=== PATIENT | male | born 1980 | race Hispanic/Latino ===

== ENCOUNTER 2020-06-29 15:31 | Inpatient (IN) | payer SELFPAY ==
[~2020-06-29] VITALS: Ht 172.7 cm; Wt 115.8 kg
[2020-06-29 16:26] LABS: BASOPHILS % (AUTO) 0.5 % (0.0-5.0); EOSINOPHILS % (AUTO) 2.9 % (0.0-8.0); HEMATOCRIT 24.7 % (42-54); LYMPHOCYTES % (AUTO) 23.5 % (21.0-51.0); MEAN CORPUSCULAR HEMOGLOBIN 29.4 pg (27.0-33.0); MEAN CORPUSCULAR HGB CONC 31.6 g/dL (32.0-36.0); MEAN CORPUSCULAR VOLUME 93.2 fL (79-99); MONOCYTES % (AUTO) 7.6 % (3.0-13.0); NEUTROPHILS % (AUTO) 65.3 % (40.0-77.0); PLATELET COUNT (AUTO) 98 K/uL (130-400); RED BLOOD CELL COUNT(AUTO) 2.65 MIL/uL (4.50-6.20); RED CELL DISTRIBUTION WIDTH 15.3 % (11.0-15.5); WHITE BLOOD COUNT (AUTO) 5.5 K/uL (4.8-10.8)
[2020-06-29 16:43] LABS: INR 1.42 (0.85-1.15); PARTIAL THROMBOPLASTIN TIME 28.9 SEC (26.3-35.5); PROTHROMBIN TIME 15.1 SEC (9.6-11.6)
[2020-06-29 16:51] LABS: CREATININE 0.7 mg/dL (0.5-1.5); POTASSIUM 3.6 mmol/L (3.5-5.1)
[2020-06-29 16:55] LABS: ALBUMIN 2.2 g/dL (3.5-5.0); BILIRUBIN,TOTAL 2.6 mg/dL (0.2-1.0)
[2020-06-29 17:54] LABS: APPEARANCE,URINE Clear (CLEAR); BILIRUBIN,URINE Negative (NEGATIVE); COLOR,URINE Dark Yellow (YELLOW); GLUCOSE, URINE (UA) Negative (NEGATIVE); KETONES,URINE Negative (NEGATIVE); LEUKOCYTE ESTERASE ,URINE Trace (NEGATIVE); NITRATE,URINE Negative (NEGATIVE); OCCULT BLOOD,URINE Negative (NEGATIVE); PROTEIN,URINE Negative (NEGATIVE)
[2020-06-29 18:24] LABS: RBC,URINE None Seen /HPF (0-1)
[2020-06-29 18:25] LABS: BACTERIA,URINE Rare /HPF (None Seen); SQUAMOUS EPITHELIAL CELL,UR 0-2 /HPF (0-2)
[2020-06-29] MEDS ORDERED: MAG HYDROX/AL HYDROX/SIMETH ES 30 ML SUSP UDCUP PO PRN (20:45)
[2020-06-29] MEDS ORDERED: NITROGLYCERIN 0.4 MG SL TAB SL PRN (20:45)
[2020-06-29] MEDS ORDERED: ACETAMINOPHEN 325 MG TAB PO PRN ×2 (20:45)
[2020-06-29] MEDS ORDERED: MAG HYDROX/AL HYDROX/SIMETH 30 ML, LIDOCAINE HCL 2% VISCOUS 30 ML, DIPHENHYDRAMINE HCL ... PO PRN ×3 (20:45)
[2020-06-29] MEDS ORDERED: MORPHINE SULFATE 2 MG/ML 1ML SYG IV PRN (20:45)
[2020-06-29] MEDS ORDERED: LACTULOSE 20 GM/30 ML UDCUP PO PRN (20:45)
[2020-06-29] MEDS ORDERED: ZOLPIDEM TARTRATE 5 MG TAB PO PRN (20:45)
[2020-06-29] MEDS ORDERED: GUAIFENESIN-DM 200/20 MG 10 ML PO PRN (20:45)
[2020-06-29] MEDS ORDERED: ONDANSETRON HCL 4 MG/2 ML VIAL IV PRN (20:45)
[2020-06-29] MEDS ORDERED: DiphenhydrAMINE HCL 50 MG/ML VIAL IV PRN (20:45)
[2020-06-29] MEDS ORDERED: DIPHENHYDRAMINE HCL 25 MG CAPSULE PO PRN (20:45)
[2020-06-29] MEDS ORDERED: BENZONATATE 100 MG CAPSULE PO PRN (20:45)
[2020-06-29] MEDS ORDERED: MORPHINE SULFATE 4 MG/1ML SYG IV PRN (20:45)
[2020-06-29] MEDS ORDERED: IOHEXOL-350 75 ML VIAL IV ONE (20:57)
[2020-06-29] MEDS ORDERED: FAMOTIDINE/PF 20 MG/2 ML VIAL IV SCH (21:00)
[2020-06-29] MEDS ORDERED: FAMOTIDINE/PF 20 MG/2 ML VIAL IV ONE (21:19)
[2020-06-29 21:37] LABS: CREATINE KINASE, TOTAL 175 U/L (21-232); MYOGLOBIN 39 ng/mL (10-92); TROPONIN I < 0.04 ng/mL (0.00-0.06)
[2020-06-29 21:39] LABS: % IRON SATURATION 5.4 % (30-44)
[2020-06-30 04:00] VITALS: BP 127/77
[2020-06-30 06:35] LABS: BASOPHILS % (AUTO) 0.3 % (0.0-5.0); EOSINOPHILS % (AUTO) 3.2 % (0.0-8.0); HEMATOCRIT 21.9 % (42-54); LYMPHOCYTES % (AUTO) 28.4 % (21.0-51.0); NEUTROPHILS % (AUTO) 57.8 % (40.0-77.0); PLATELET COUNT (AUTO) 74 K/uL (130-400); RED BLOOD CELL COUNT(AUTO) 2.33 MIL/uL (4.50-6.20); RED CELL DISTRIBUTION WIDTH 15.3 % (11.0-15.5); WHITE BLOOD COUNT (AUTO) 3.5 K/uL (4.8-10.8)
[2020-06-30 06:57] LABS: CREATINE KINASE, TOTAL 137 U/L (21-232); MYOGLOBIN 37 ng/mL (10-92); TROPONIN I < 0.04 ng/mL (0.00-0.06)
[2020-06-30 08:17] LABS: ALBUMIN 1.9 g/dL (3.5-5.0); BILIRUBIN,TOTAL 2.6 mg/dL (0.2-1.0); CREATININE 0.7 mg/dL (0.5-1.5); MAGNESIUM 1.9 mg/dL (1.80-2.40); PHOSPHORUS 3.2 mg/dL (2.5-4.9); POTASSIUM 3.7 mmol/L (3.5-5.1)
[2020-06-30] MEDS ORDERED: PANTOPRAZOLE SODIUM 80 MG in SODIUM CHLORIDE 0.9% 100 ML IV SCH (08:34)
[2020-06-30 09:00] VITALS: BP 134/72
[2020-06-30] MEDS ORDERED: ENOXAPARIN SODIUM 40 MG/0.4 ML SYRINGE SQ SCH (09:00)
[2020-06-30 11:45] VITALS: BP 127/74
[2020-06-30 13:49] LABS: CREATINE KINASE, TOTAL 134 U/L (21-232); MYOGLOBIN 33 ng/mL (10-92); TROPONIN I < 0.04 ng/mL (0.00-0.06)
[2020-06-30] MEDS: FUROSEMIDE 40 MG TABLET PO SCH (15:40)
[2020-06-30] MEDS: SPIRONOLACTONE 25 MG TAB PO SCH (15:40)
--- NOTE | 2020-06-30 16:16 | NUR ---
MET W PATIENT FOR [facility]IV[facility] WITH JONNY, WHO DOES ALL THE DRIVINGS, NO MDE, INDP OF ADLS, HX OF ETOH, NO SERVICES, UNINSURED, [employer] [employer] [facility] PENDING Addendum: 07/01/20 at 1622 by JONG LINO RN Amended: Links added.
[2020-06-30 17:07] VITALS: BP 137/84
[2020-06-30 18:02] LABS: HEMATOCRIT 25.9 % (42-54)
[2020-06-30 19:31] VITALS: BP 112/67
[2020-06-30 21:59] LABS: HEMATOCRIT 22.8 % (42-54)
[2020-06-30 23:58] VITALS: BP 99/47
[2020-07-01 03:46] LABS: BASOPHILS % (AUTO) 0.2 % (0.0-5.0); EOSINOPHILS % (AUTO) 3.1 % (0.0-8.0); HEMATOCRIT 24.9 % (42-54); LYMPHOCYTES % (AUTO) 26.3 % (21.0-51.0); MEAN CORPUSCULAR HEMOGLOBIN 29.9 pg (27.0-33.0); MEAN CORPUSCULAR HGB CONC 32.5 g/dL (32.0-36.0); MEAN CORPUSCULAR VOLUME 91.9 fL (79-99); NEUTROPHILS % (AUTO) 60.2 % (40.0-77.0); PLATELET COUNT (AUTO) 82 K/uL (130-400); RED BLOOD CELL COUNT(AUTO) 2.71 MIL/uL (4.50-6.20); RED CELL DISTRIBUTION WIDTH 15.3 % (11.0-15.5); WHITE BLOOD COUNT (AUTO) 4.2 K/uL (4.8-10.8)
[2020-07-01 03:54] VITALS: BP 126/77
[2020-07-01 04:10] LABS: ALBUMIN 1.9 g/dL (3.5-5.0); BILIRUBIN,TOTAL 3.2 mg/dL (0.2-1.0); CREATININE 0.7 mg/dL (0.5-1.5); MAGNESIUM 1.9 mg/dL (1.80-2.40); PHOSPHORUS 3.5 mg/dL (2.5-4.9); POTASSIUM 3.5 mmol/L (3.5-5.1); TOTAL PROTEIN, SERUM 6.2 g/dL (6.0-8.3)
[2020-07-01 06:30] LABS: HEMATOCRIT 23.9 % (42-54)
[2020-07-01] MEDS ORDERED: POTASSIUM CHLORIDE 20 MEQ ERTAB PO SCH (07:45)
[2020-07-01] MEDS ORDERED: SPIR100T PO (07:49)
[2020-07-01] MEDS ORDERED: POTA-79 PO (07:49)
[2020-07-01] MEDS ORDERED: FURO40TA5 PO (07:49)
[2020-07-01] MEDS ORDERED: PANT40TA PO (07:49)
[2020-07-01 08:55] VITALS: BP 130/73
[2020-07-01] MEDS: SPIRONOLACTONE 25 MG TAB PO SCH (09:34)
[2020-07-01] MEDS: FUROSEMIDE 40 MG TABLET PO SCH (09:34)
--- NOTE | 2020-07-01 11:00 | NUR ---
COMMUNITY PKT GIVEN AND WALKED PATIENT THROUGH [facility] VERBALIZED UNDERSTANDING Addendum: 07/01/20 at 1622 by JONG LINO RN CM Amended: Links added.
== END 2020-07-01 13:00 | disposition home or self-care (01) | DRG 433 ==
LOC: EDH 15:31 → EDHIP 15:32 → 3AH 06-30 03:07
PROVIDERS: ADMIT Internal Medicine; ATTEND Internal Medicine
PROC: 30233N1 Transfusion of Nonautologous Red Blood Cells into Peripheral Vein, Percutaneous Approach (ICD-10-PCS; principal; 2020-06-30)
DX: K74.60 Unspecified cirrhosis of liver (principal); K92.2 Gastrointestinal hemorrhage, unspecified; R18.8 Other ascites; K76.6 Portal hypertension; D64.9 Anemia, unspecified; F10.10 Alcohol abuse, uncomplicated; I08.1 Rheumatic disorders of both mitral and tricuspid valves; Y90.9 Presence of alcohol in blood, level not specified; R06.03 Acute respiratory distress; Z20.828 Contact with and (suspected) exposure to other viral communicable diseases; Z87.891 Personal history of nicotine dependence; Z83.3 Family history of diabetes mellitus; Z82.49 Family history of ischemic heart disease and other diseases of the circulatory system
CPT/HCPCS: 36415; 71045; 74178; 76705; 80053; 81001; 82270; 82550; 83540; 83550; 83690; 83735; 83874; 84100; 84484; 85014; 85018; 85025; 85610; 85730; 86850; 86900; 86901; 86923; 87426; 93005; 93306; 93356; C9113; G0378; J1650; J3490; P9016; Q9967; U0003

== ENCOUNTER 2021-02-27 06:57 | Emergency (ER) | payer SELFPAY ==
[~2021-02-27 06:57] MED LIST: FURO40TA5 PO; PANT40TA PO; POTA-79 PO; SPIR100T PO
[2021-02-27 07:23] LABS: APPEARANCE,URINE Clear (CLEAR); BILIRUBIN,URINE Small (NEGATIVE); COLOR,URINE Dark Yellow (YELLOW); GLUCOSE, URINE (UA) Negative (NEGATIVE); KETONES,URINE Negative (NEGATIVE); LEUKOCYTE ESTERASE ,URINE Negative (NEGATIVE); NITRATE,URINE Negative (NEGATIVE); OCCULT BLOOD,URINE Negative (NEGATIVE); PROTEIN,URINE Negative (NEGATIVE)
[2021-02-27 07:25] LABS: BASOPHILS % (AUTO) 0.6 % (0.0-5.0); EOSINOPHILS % (AUTO) 2.9 % (0.0-8.0); HEMATOCRIT 39.2 % (42-54); LYMPHOCYTES % (AUTO) 23.7 % (21.0-51.0); MEAN CORPUSCULAR HGB CONC 33.2 g/dL (32.0-36.0); MEAN CORPUSCULAR VOLUME 90.3 fL (79-99); MONOCYTES % (AUTO) 10.6 % (3.0-13.0); PLATELET COUNT (AUTO) 63 K/uL (130-400); RED BLOOD CELL COUNT(AUTO) 4.34 MIL/uL (4.50-6.20); RED CELL DISTRIBUTION WIDTH 18.7 % (11.0-15.5); WHITE BLOOD COUNT (AUTO) 6.2 K/uL (4.8-10.8)
[2021-02-27 07:33] LABS: INR 1.43 (0.85-1.15); PROTHROMBIN TIME 15.1 SEC (9.6-11.6)
[2021-02-27 07:34] LABS: PARTIAL THROMBOPLASTIN TIME 32.3 SEC (26.3-35.5)
[2021-02-27 07:36] LABS: ALBUMIN 2.7 g/dL (3.5-5.0); BILIRUBIN,TOTAL 2.1 mg/dL (0.2-1.0); CREATININE 0.7 mg/dL (0.5-1.5); POTASSIUM 3.8 mmol/L (3.5-5.1); TOTAL PROTEIN, SERUM 7.6 g/dL (6.0-8.3)
[2021-02-27] MEDS ORDERED: LIDOCAINE 5% TOPICAL PATCH TP ONE (07:36)
[2021-02-27 07:49] LABS: BACTERIA,URINE Rare /HPF (None Seen); RBC,URINE 0-1 /HPF (0-1); SQUAMOUS EPITHELIAL CELL,UR None Seen /HPF (0-2); WBC,URINE 0-1 /HPF (0-1)
[2021-02-27 08:17] LABS: PLATELET MORPHOLOGY COMMENT DECREASED
== END 2021-02-27 08:37 | disposition home or self-care (01) ==
LOC: EDH 06:57
DX: R07.89 Other chest pain (principal); R10.9 Unspecified abdominal pain; R05 Cough
CPT/HCPCS: 36415; 71046; 80053; 81001; 83605; 83690; 83880; 85025; 85610; 85730; 93005

== ENCOUNTER 2022-06-08 11:29 | Emergency (ER) | payer OTHER ==
[~2022-06-08] VITALS: Ht 172.7 cm; Wt 99.8 kg
[2022-06-08 11:31] VITALS: BP 131/76
[2022-06-08 11:55] LABS: BASOPHILS % (AUTO) 0.5 % (0.0-5.0); EOSINOPHILS % (AUTO) 2.7 % (0.0-8.0); HEMATOCRIT 40.6 % (42-54); LYMPHOCYTES % (AUTO) 24.8 % (21.0-51.0); MEAN CORPUSCULAR HEMOGLOBIN 32.3 pg (27.0-33.0); MEAN CORPUSCULAR VOLUME 95.1 fL (79-99); MONOCYTES % (AUTO) 8.2 % (3.0-13.0); NEUTROPHILS % (AUTO) 63.6 % (40.0-77.0); PLATELET COUNT (AUTO) 47 K/uL (130-400); RED BLOOD CELL COUNT(AUTO) 4.27 MIL/uL (4.50-6.20); RED CELL DISTRIBUTION WIDTH 14.1 % (11.0-15.5)
[2022-06-08 12:13] LABS: ALBUMIN 2.1 g/dL (3.5-5.0); CREATININE 0.8 mg/dL (0.5-1.5); POTASSIUM 4.6 mmol/L (3.5-5.1); TOTAL PROTEIN, SERUM 7.2 g/dL (6.0-8.3)
[2022-06-08 12:13] LABS: APPEARANCE,URINE CLEAR (CLEAR); BILIRUBIN,URINE NEGATIVE (NEGATIVE); COLOR,URINE YELLOW (YELLOW); GLUCOSE, URINE (UA) >=1000 mg/dL (NEGATIVE); KETONES,URINE NEGATIVE (NEGATIVE); LEUKOCYTE ESTERASE ,URINE NEGATIVE (NEGATIVE); NITRATE,URINE NEGATIVE (NEGATIVE); OCCULT BLOOD,URINE SMALL (NEGATIVE); PH,URINE 5.5 (5.0-8.0); PROTEIN,URINE NEGATIVE (NEGATIVE); UROBILINOGEN,URINE 0.2 mg/dL (0.2-1.0)
[2022-06-08 12:20] LABS: BACTERIA,URINE Rare /HPF (None Seen); RBC,URINE 0-1 /HPF (0-1); SQUAMOUS EPITHELIAL CELL,UR Rare /HPF (0-2); WBC,URINE 0-1 /HPF (0-1)
[2022-06-08] MEDS ORDERED: TRAM50TA4 PO (14:02)
== END 2022-06-08 14:09 | disposition home or self-care (01) ==
LOC: EDH 11:29
DX: K40.90 Unilateral inguinal hernia, without obstruction or gangrene, not specified as recurrent (principal); R18.8 Other ascites; K74.60 Unspecified cirrhosis of liver; E11.9 Type 2 diabetes mellitus without complications; Z79.899 Other long term (current) drug therapy
CPT/HCPCS: 36415; 74176; 80053; 81001; 83690; 85025; 93005

== ENCOUNTER 2022-12-12 07:34 | Emergency (ER) | payer BC, OTHER ==
[~2022-12-12] VITALS: Ht 172.7 cm; Wt 105.7 kg
[~2022-12-12 07:34] MED LIST changes: +TRAM50TA4 PO
[2022-12-12 08:46] LABS: BASOPHILS % (AUTO) 0.5 % (0.0-5.0); EOSINOPHILS % (AUTO) 2.8 % (0.0-8.0); HEMATOCRIT 36.7 % (42-54); LYMPHOCYTES % (AUTO) 19.1 % (21.0-51.0); MEAN CORPUSCULAR HEMOGLOBIN 32.4 pg (27.0-33.0); MEAN CORPUSCULAR HGB CONC 33.2 g/dL (32.0-36.0); MEAN CORPUSCULAR VOLUME 97.3 fL (79-99); MONOCYTES % (AUTO) 12.7 % (3.0-13.0); NEUTROPHILS % (AUTO) 64.7 % (40.0-77.0); PLATELET COUNT (AUTO) 70 K/uL (130-400); RED BLOOD CELL COUNT(AUTO) 3.77 MIL/uL (4.50-6.20); RED CELL DISTRIBUTION WIDTH 14.8 % (11.0-15.5); WHITE BLOOD COUNT (AUTO) 4.3 K/uL (4.8-10.8)
[2022-12-12 08:47] LABS: APPEARANCE,URINE CLEAR (CLEAR); BILIRUBIN,URINE NEGATIVE (NEGATIVE); COLOR,URINE YELLOW (YELLOW); GLUCOSE, URINE (UA) NEGATIVE (NEGATIVE); KETONES,URINE NEGATIVE (NEGATIVE); LEUKOCYTE ESTERASE ,URINE NEGATIVE Leu/uL (NEGATIVE); NITRATE,URINE NEGATIVE (NEGATIVE); OCCULT BLOOD,URINE NEGATIVE (NEGATIVE); PROTEIN,URINE 10 mg/dL (NEGATIVE)
[2022-12-12 08:58] LABS: BACTERIA,URINE RARE /HPF (None Seen); MUCUS,URINE RARE LPF (None Seen); OTHER CASTS, URINE 2 /LPF (None Seen); RBC,URINE 0-1 /HPF (0-1); SQUAMOUS EPITHELIAL CELL,UR RARE /HPF (0-2)
[2022-12-12 09:00] LABS: INR 1.32 (0.85-1.15); PROTHROMBIN TIME 14.2 SEC (9.6-11.6)
[2022-12-12 09:02] LABS: CREATININE 0.9 mg/dL (0.5-1.5); POTASSIUM 4.6 mmol/L (3.5-5.1)
[2022-12-12 09:05] LABS: TOTAL PROTEIN, SERUM 7.5 g/dL (6.0-8.3)
[2022-12-12] MEDS ORDERED: MORPHINE 4 MG SYG IVP ONE (10:00)
[2022-12-12] MEDS ORDERED: ONDANSETRON 4MG INJ IVP ONE (10:00)
[2022-12-12] MEDS ORDERED: ALBUMIN (HUMAN) 25% 200 ML IV ONE (11:56)
[2022-12-12 13:18] VITALS: BP 116/60
== END 2022-12-12 14:20 | disposition home or self-care (01) ==
LOC: EDH 07:34
DX: R18.8 Other ascites (principal); K74.60 Unspecified cirrhosis of liver; E11.9 Type 2 diabetes mellitus without complications; Z79.899 Other long term (current) drug therapy
CPT/HCPCS: 49083; 99285; 74176; 96365; 96366; 96375; 80053; 83690; 85025; 85610; 81001; 36415; 93005; P9046; C1729

== ENCOUNTER → 2023-02-08 | Outpatient (CLI) | payer MEDICARE | END | disposition home or self-care (01) | LOC: RAH 13:31 | PROVIDERS: ATTEND Family Medicine | DX: I34.0 Nonrheumatic mitral (valve) insufficiency (principal); R06.02 Shortness of breath | CPT/HCPCS: 93306 ==

== ENCOUNTER 2023-07-11 11:35 | Emergency (ER) | payer MEDICARE, OTHER ==
[~2023-07-11] VITALS: Ht 172.7 cm; Wt 90.7 kg
[~2023-07-11 11:35] MED LIST changes: +POTA-364 PO; -POTA-79 PO
[2023-07-11 12:55] LABS: BASOPHILS # (AUTO) 0.07 K/uL (0.00-0.20); BASOPHILS % (AUTO) 0.9 % (0.0-5.0); EOSINOPHILS # (AUTO) 0.17 K/uL (0.00-0.70); EOSINOPHILS % (AUTO) 2.2 % (0.0-8.0); IMMATURE GRANULOCYTE ABSOLUTE 0.04 K/uL (0-1); LYMPHOCYTES # (AUTO) 1.5 K/uL (1.0-4.8); LYMPHOCYTES % (AUTO) 19.6 % (21.0-51.0); MEAN CORPUSCULAR HEMOGLOBIN 33.2 pg (27.0-33.0); MEAN CORPUSCULAR HGB CONC 35.6 g/dL (32.0-36.0); MEAN CORPUSCULAR VOLUME 93.3 fL (79-99); MONOCYTES % (AUTO) 12.9 % (3.0-13.0); NEUTROPHILS # (AUTO) 4.9 K/uL (1.8-7.7); NEUTROPHILS % (AUTO) 63.9 % (40.0-77.0); PLATELET COUNT (AUTO) 62 K/uL (130-400); RED BLOOD CELL COUNT(AUTO) 3.86 MIL/uL (4.50-6.20); RED CELL DISTRIBUTION WIDTH 13.7 % (11.0-15.5); WHITE BLOOD COUNT (AUTO) 7.7 K/uL (4.8-10.8)
[2023-07-11 13:05] LABS: INR 1.45 (0.85-1.15); PROTHROMBIN TIME 16.4 SEC (9.6-11.6)
[2023-07-11 13:06] LABS: PARTIAL THROMBOPLASTIN TIME 38.2 SEC (26.3-35.5)
[2023-07-11 13:10] LABS: ALBUMIN 1.6 g/dL (3.5-5.0); BILIRUBIN,TOTAL 3.3 mg/dL (0.2-1.0); CREATININE 1.2 mg/dL (0.5-1.5); POTASSIUM 3.6 mmol/L (3.5-5.1); TOTAL PROTEIN, SERUM 6.9 g/dL (6.0-8.3)
[2023-07-11 13:36] LABS: ADD UA MICROSCOPIC YES
[2023-07-11 13:38] LABS: APPEARANCE,URINE CLEAR (CLEAR); BILIRUBIN,URINE NEGATIVE (NEGATIVE); COLOR,URINE COLORLESS (YELLOW); GLUCOSE, URINE (UA) >=1000 mg/dL (NEGATIVE); KETONES,URINE NEGATIVE (NEGATIVE); LEUKOCYTE ESTERASE ,URINE NEGATIVE Leu/uL (NEGATIVE); NITRATE,URINE NEGATIVE (NEGATIVE); OCCULT BLOOD,URINE NEGATIVE (NEGATIVE); PH,URINE 6.5 (5.0-8.0); PROTEIN,URINE NEGATIVE (NEGATIVE); RBC,URINE 0-1 /HPF (0-1); SQUAMOUS EPITHELIAL CELL,UR RARE /HPF (0-2); UROBILINOGEN,URINE 0.2 mg/dL (0.2-1.0); WBC,URINE 0-1 /HPF (0-1)
[2023-07-11] MEDS ORDERED: INSULIN HUMULIN R 100 UNIT/ML 3ML IV ONE ×3 (14:00→18:00)
[2023-07-11] MEDS ORDERED: 0.9% NACL 500ML IV.SOLN 500 ML IV ONE (16:30)
[2023-07-11 16:41] LABS: HEMATOCRIT 35.3 % (42-54)
[2023-07-11 19:53] VITALS: BP 138/74; PULSE 88; RESP 18; O2SAT 99
== END 2023-07-11 19:54 | disposition home or self-care (01) ==
LOC: EDH 11:35
DX: R55 Syncope and collapse (principal); E11.65 Type 2 diabetes mellitus with hyperglycemia; E87.1 Hypo-osmolality and hyponatremia; K74.60 Unspecified cirrhosis of liver; Z79.899 Other long term (current) drug therapy
CPT/HCPCS: 99284; 96374; 96361; 84484; 80053; 82140; 85025; 85610; 85730; 85014; 85018; 82948 ×3; 83930; 81001; 36415; 96376; 93005; J1815 ×3; J7040